=== PATIENT | male | born 1945 | race Caucasian/White ===

== ENCOUNTER 2018-06-11 05:12 | Inpatient (IN) | payer MEDICARE ==
[2018-06-10 14:49] LABS: BASOPHILS # (AUTO) 0.1 X10'3 (0-0.2); EOSINOPHILS # (AUTO) 0.1 X10'3 (0-0.9); EOSINOPHILS % (AUTO) 0.9 % (0-6); LYMPHOCYTES # (AUTO) 1.5 X10'3 (1.1-4.8); LYMPHOCYTES % (AUTO) 22.9 % (21-51); MEAN CORPUSCULAR HEMOGLOBIN 32.6 PG (27.0-31.0); MEAN CORPUSCULAR HGB CONC 35.1 % (33.0-36.5); MEAN CORPUSCULAR VOLUME 92.9 FL (78-98); MEAN PLATELET VOLUME 7.2 FL (7.4-10.4); MONOCYTES # (AUTO) 0.4 X10'3 (0-0.9); MONOCYTES % (AUTO) 6.4 % (2-12); NEUTROPHILS # (AUTO) 4.5 X10'3 (1.8-7.7); NEUTROPHILS % (AUTO) 68.8 % (42-75); PRE OP HEMATOCRIT 45.3 % (42.0-52.0); PRE OP HEMOGLOBIN 15.9 g/dL (14.0-17.9); PRE OP PLATELET COUNT 216 X10'3 (140-440); RED BLOOD COUNT 4.88 X10'6 (4.70-6.10); RED CELL DISTRIBUTION WIDTH 13.2 % (11.5-14.5)
[2018-06-10 15:01] LABS: PRE OP PROTIME 10.7 SECONDS (9.0-12.0)
[2018-06-10 15:06] LABS: ALBUMIN 3.8 G/DL (3.4-5.0); ALBUMIN/GLOBULIN RATIO 1.2 (1.1-1.5); ALKALINE PHOSPHATASE 70 IU/L (46-116); BLOOD UREA NITROGEN 21 MG/DL (7-18); BUN/CREATININE RATIO 16.9 (5.4-32.0); CALCIUM 8.9 MG/DL (8.5-10.1); CHLORIDE 105 MMOL/L (99-107); CREATININE 1.24 MG/DL (0.60-1.10); PRE OP ALT 31 U/L (30-65); PRE OP ANION GAP 6 (8-16); PRE OP AST 13 U/L (10-37); PRE OP GLUCOSE 94 MG/DL (70-104); PRE OP POTASSIUM 3.6 MMOL/L (3.4-5.1); PRE OP SODIUM 141 MMOL/L (135-145); TOTAL CARBON DIOXIDE 30.1 MMOL/L (24-32); TOTAL PROTEIN 6.9 G/DL (6.4-8.2); eGFR 57 ML/MIN
[2018-06-10 15:09] LABS: CLARITY,URINE CLEAR (Clear); COLOR,URINE YELLOW (Yellow); GLUCOSE, URINE NEGATIVE (Neg); KETONES,URINE NEGATIVE (Neg); LEUKOCYTE ESTERASE ,URINE NEGATIVE (Neg); NITRITES, URINE NEGATIVE (Neg); OCCULT BLOOD,URINE NEGATIVE (Neg); PH,URINE 6.5 (4.8-8.0); PROTEIN,URINE NEGATIVE (Neg)
[2018-06-10 15:18] LABS: UA COLLECTION TYPE CLN CATCH MIDSTREAM
[2018-06-10 15:39] LABS: HEMOGLOBIN A1C 5.5 % (4.5-6.2)
[~2018-06-11] VITALS: Ht 185.4 cm; Wt 118.7 kg
[2018-06-11] VITALS (19 sets, daily range): BP systolic 98–155; BP diastolic 48–98
[2018-06-11] MEDS: insulin regular, human 100 UNIT in normal saline 100ml IV soln 99 ML IV SCH ×2 (05:00)
[~2018-06-11 05:12] MED LIST: AMLO2.5T2 PO; ASPI-529 PO; CHOL10002 PO; CIDE600C PO; FISH12002 PO; FLAX100025 PO; FLUT16SP2 BOTHNARES; GEMF600T4 PO; HYDR12.5 PO; ISOS30TA6 PO; LORazepam 2 mg/ml vial IV ONE; METO-384 PO; PANT-47 PO; PRAV10TA39 PO; cefazolin/dext.iso 2gm/50ml 50 ML IV ONE; dextrose 50%-water 50ml dispensing syringe IV PRN; insulin Lispro (HumaLOG) vial - multi-dose SQ PRN; metoprolol tartrate 12.5mg (1/2 tablet) PO ONE; mupirocin 2% nasal ointment 1gm UD NS ONE; ringers solution, lacted 1,000 ML IV SCH
[2018-06-11] MEDS ORDERED: DOCUMENT DATE & TIME OF BETA-BLOCKER PO ONE (05:30)
[2018-06-11] MEDS ORDERED: famotidine 20mg tablet PO ONE (05:30)
[2018-06-11] MEDS ORDERED: LIDOcaine 1% (10mg/ml) 2ml vial ONE (05:46)
[2018-06-11] MEDS ORDERED: SUFENTANIL CITRATE 50 MCG/ML 2ml ampule IV ONE (07:03)
[2018-06-11] MEDS ORDERED: MIDAZolam 1mg/ml 10ml vial ONE (07:03)
[2018-06-11] MEDS ORDERED: aminocaproic acid 250 MG/1 ML inj. ONE (07:05)
[2018-06-11] MEDS ORDERED: potassium Cl 2 mEq/ml inj IV ONE (07:05)
[2018-06-11] MEDS ORDERED: papaverine 30 mg/ml 2ml inj. IA ONE (07:05)
[2018-06-11] MEDS ORDERED: heparin 10,000 units/1 ML INJ IR ONE (07:05)
[2018-06-11] MEDS ORDERED: LIDOcaine 2% (20 mg/ml) 5ml cardiac syringe ONE (07:05)
[2018-06-11] MEDS ORDERED: calcium chloride 100 MG/1 ML inj IV ONE (07:05)
[2018-06-11] MEDS ORDERED: phenylephrine 10mg/ml inj. ONE ×2 (07:05→08:25)
[2018-06-11] MEDS ORDERED: heparin 10,000 units/1 ML INJ ONE (07:05)
[2018-06-11] MEDS ORDERED: magnesium sulf 1 GM/2 ML ONE (07:05)
[2018-06-11] MEDS ORDERED: DOPamine/D5W 400mg/250ml bag IV ONE (07:05)
[2018-06-11] MEDS ORDERED: methylPREDNISolone sod. succ. 500mg inj ONE (07:05)
[2018-06-11] MEDS ORDERED: isoflurane 100ml inhalation liquid IH ONE (07:05)
[2018-06-11] MEDS ORDERED: sodium bicarbonate (8.4%) 1 mEq/ml syringe ONE (07:05)
[2018-06-11] MEDS ORDERED: nitroGLYCERIN in D5W 50mg/250ml (Tridil) infusion IV ONE (07:05)
[2018-06-11] MEDS ORDERED: protamine sulf. 10mg/ml inj. IV ONE (07:05)
[2018-06-11] MEDS ORDERED: albumin (human) 25% 100 ML IV solution IV ONE (07:05)
[2018-06-11] MEDS ORDERED: heparin 1,000 units/ml 10ml inj ONE (07:05)
[2018-06-11] MEDS ORDERED: niCARDipine in NS 40mg/200ml (0.2mg/ml) IVPB IV ONE (07:05)
[2018-06-11 07:50] LABS: ABG BASE EXCESS 1.2 mmol/L (-2.0-3.0); ABG HCO3 26.6 mmol/L (22.0-26.0); ABG OXYGEN SATURATION 98.6 % (95-98); ABG PCO2 44.9 mmHg (35.0-45.0); ABG PO2 429.6 mmHg (60.0-100.0); CL (ABG) 106 mmol/L (99-107); FCOHb 0.5 % (0.5-1.5); FMetHb 0.3 % (0.3-1.12); FO2Hb 97.8 % (94-100); GLUCOSE (ABG) 107 mg/dl (70-105); IONIZED CA (ABG) 1.14 mmol/L (1.03-1.32); K (ABG) 3.8 mmol/L (3.3-5.1); NA (ABG) 141 mmol/L (135-145); TOTAL HEMOGLOBIN 13.8 G/dl (14.0-18.0)
[2018-06-11] MEDS ORDERED: rocuronium 10mg/ml inj IV ONE (08:25)
[2018-06-11] MEDS ORDERED: epiNEPHrine 1 mg/ml inj ONE (08:25)
[2018-06-11] MEDS ORDERED: etomidate 2mg/ml inj. ONE (08:25)
[2018-06-11] MEDS ORDERED: LIDOcaine 2% (20mg/ml) 5ml vial ONE (08:25)
[2018-06-11] MEDS ORDERED: propofol inj 20 ML IV ONE (08:26)
[2018-06-11 09:26] LABS: ABG BASE EXCESS -0.1 mmol/L (-2.0-3.0); ABG HCO3 22.9 mmol/L (22.0-26.0); ABG OXYGEN SATURATION 98.5 % (95-98); ABG PCO2 32.1 mmHg (35.0-45.0); ABG PH 7.472 (7.350-7.450); ABG PO2 514.3 mmHg (60.0-100.0); CL (ABG) 102 mmol/L (99-107); FCOHb 0.1 % (0.5-1.5); FMetHb 0.1 % (0.3-1.12); FO2Hb 98.3 % (94-100); GLUCOSE (ABG) 112 mg/dl (70-105); IONIZED CA (ABG) 1.03 mmol/L (1.03-1.32); NA (ABG) 135 mmol/L (135-145); TOTAL HEMOGLOBIN 11.4 G/dl (14.0-18.0)
[2018-06-11] MEDS ORDERED: ipratropium/albuterol 3ml nebule IH PRN (09:30)
[2018-06-11] MEDS ORDERED: succinylcholine 20mg/ml inj IV ONE (09:31)
[2018-06-11 09:51] LABS: ABG BASE EXCESS VENOUS 1.6 mmol/L; ABG HCO3 VENOUS 26.5 mmol/L; ABG PCO2 VENOUS 42.8 mmHg; ABG PO2 VENOUS 55.1 mmHg; CL (ABG) 104 mmol/L (99-107); FCOHb VENOUS 0.9 %; FHHb VENOUS 10.8 %; FMetHb VENOUS 0.1 %; FO2Hb VENOUS 88.2 %; GLUCOSE (ABG) 121 mg/dl (70-105); IONIZED CA (ABG) 1.01 mmol/L (1.03-1.32); K (ABG) 4.1 mmol/L (3.3-5.1); NA (ABG) 137 mmol/L (135-145); TOTAL HEMOGLOBIN 11.2 G/dl (14.0-18.0)
[2018-06-11 10:35] LABS: ABG BASE EXCESS 2.4 mmol/L (-2.0-3.0); ABG HCO3 26.8 mmol/L (22.0-26.0); ABG OXYGEN SATURATION 98.2 % (95-98); ABG PCO2 40.4 mmHg (35.0-45.0); ABG PH 7.439 (7.350-7.450); CL (ABG) 106 mmol/L (99-107); FCOHb 0.3 % (0.5-1.5); FMetHb 0.3 % (0.3-1.12); FO2Hb 97.6 % (94-100); GLUCOSE (ABG) 133 mg/dl (70-105); IONIZED CA (ABG) 1.04 mmol/L (1.03-1.32); K (ABG) 4.6 mmol/L (3.3-5.1); NA (ABG) 136 mmol/L (135-145); TOTAL HEMOGLOBIN 10.9 G/dl (14.0-18.0)
[2018-06-11 11:06] LABS: ABG BASE EXCESS 3.7 mmol/L (-2.0-3.0); ABG HCO3 28.4 mmol/L (22.0-26.0); ABG OXYGEN SATURATION 98.1 % (95-98); ABG PCO2 43.4 mmHg (35.0-45.0); ABG PH 7.433 (7.350-7.450); ABG PO2 321.5 mmHg (60.0-100.0); CL (ABG) 103 mmol/L (99-107); FCOHb 0.3 % (0.5-1.5); FMetHb 0.1 % (0.3-1.12); FO2Hb 97.7 % (94-100); GLUCOSE (ABG) 130 mg/dl (70-105); IONIZED CA (ABG) 1.35 mmol/L (1.03-1.32); K (ABG) 4.5 mmol/L (3.3-5.1); NA (ABG) 133 mmol/L (135-145)
[2018-06-11] MEDS ORDERED: ceFAZolin 1000mg inj ONE (11:23)
[2018-06-11 11:46] LABS: ABG BASE EXCESS VENOUS -0.7 mmol/L; ABG HCO3 VENOUS 25.7 mmol/L; ABG PCO2 VENOUS 51.1 mmHg; ABG PO2 VENOUS 38.8 mmHg; CL (ABG) 105 mmol/L (99-107); FCOHb VENOUS 0.9 %; FHHb VENOUS 29.7 %; FMetHb VENOUS 0.6 %; FO2Hb VENOUS 68.8 %; GLUCOSE (ABG) 141 mg/dl (70-105); IONIZED CA (ABG) 1.19 mmol/L (1.03-1.32); K (ABG) 4.1 mmol/L (3.3-5.1); NA (ABG) 139 mmol/L (135-145); TOTAL HEMOGLOBIN 10.4 G/dl (14.0-18.0)
[2018-06-11] MEDS ORDERED: nitroGLYCERIN-Tridil 50MG/D5W 250 ML IV PRN (12:11)
[2018-06-11] MEDS ORDERED: DOPamine 400mg/D5W 250ml 250 ML IV PRN (12:11)
[2018-06-11] MEDS ORDERED: niCARDipine/sod cl 20mg/200ml 200 ML IV PRN (12:11)
[2018-06-11] MEDS ORDERED: insulin regular, human inj. 100 UNITS in normal saline 100ml IV soln 100 ML IV SCH ×2 (12:15)
[2018-06-11] MEDS ORDERED: sodium phosphate inj. 30 MMOL in dextrose 5%-water 250 ML IV PRN (12:15)
[2018-06-11] MEDS ORDERED: potassium Cl 20mEq/100mL bag 100 ML IV PRN (12:15)
[2018-06-11] MEDS ORDERED: metoclopramide 5 mg/ml inj IV PRN (12:15)
[2018-06-11] MEDS ORDERED: Neutra Phos packet PO PRN (12:15)
[2018-06-11] MEDS ORDERED: dextrose 50%-water 50ml dispensing syringe IV PRN (12:15)
[2018-06-11] MEDS ORDERED: acetaminophen 325mg tablet PO PRN (12:15)
[2018-06-11] MEDS ORDERED: normal saline 250ml IV soln 250 ML IV PRN (12:15)
[2018-06-11] MEDS ORDERED: ondansetron/PF 4mg/2ml inj IV PRN (12:15)
[2018-06-11] MEDS ORDERED: sodium phosphate inj. 15 MMOL in dextrose 5%-water 150 ML IV PRN (12:15)
[2018-06-11] MEDS ORDERED: magnesium 4gm in 100ml NS 100 ML IV PRN (12:15)
[2018-06-11] MEDS ORDERED: magnesium hydroxide 30ml (MOM) UD suspension PO PRN (12:15)
[2018-06-11] MEDS ORDERED: morphine 4 MG/ML inj SYRINge IV PRN (12:15)
[2018-06-11] MEDS ORDERED: NORepinephrine 1 mg/ml inj IV ONE (12:28)
[2018-06-11 12:50] LABS: ABG BASE EXCESS -3.2 mmol/L (-2.0-3.0); ABG HCO3 22.4 mmol/L (22.0-26.0); ABG OXYGEN SATURATION 97.5 % (95-98); ABG PH (T) 7.345 (7.350-7.450); ABG PO2 (T) 116.2 mmHg (83-108); FCOHb 0.6 % (0.5-1.5); FLOW 45 L/min; FMetHb 0.1 % (0.3-1.12); FO2Hb 96.8 % (94-100); MINUTE VOLUME 8 L/min; PEEP 5 cm H2O; RESPIRATORY RATE 12 b/min; RESPIRATORY RATE (OBSERVED) 12 b/min; TIDAL VOLUME 650 mL; TOTAL HEMOGLOBIN 15.4 G/dl (14.0-18.0)
[2018-06-11 12:55] LABS: BASOPHILS % (AUTO) 0.2 % (0-1); EOSINOPHILS % (AUTO) 0.2 % (0-6); HEMATOCRIT 43.3 % (42.0-52.0); HEMOGLOBIN 15.2 g/dl (14.0-17.9); LYMPHOCYTES # (AUTO) 1.5 X10'3 (1.1-4.8); LYMPHOCYTES % (AUTO) 9.7 % (21-51); MEAN CORPUSCULAR HEMOGLOBIN 32.7 PG (27.0-31.0); MEAN CORPUSCULAR HGB CONC 35.1 % (33.0-36.5); MEAN CORPUSCULAR VOLUME 93.1 FL (78-98); MEAN PLATELET VOLUME 7.3 FL (7.4-10.4); MONOCYTES # (AUTO) 0.7 X10'3 (0-0.9); MONOCYTES % (AUTO) 4.3 % (2-12); NEUTROPHILS # (AUTO) 13.1 X10'3 (1.8-7.7); NEUTROPHILS % (AUTO) 85.6 % (42-75); PLATELET COUNT 169 X10'3 (140-440); RED BLOOD COUNT 4.66 X10'6 (4.70-6.10); RED CELL DISTRIBUTION WIDTH 12.4 % (11.5-14.5); WHITE BLOOD COUNT 15.3 X10'3 (4.5-11.0)
[2018-06-11] MEDS: insulin Lispro (HumaLOG) vial - multi-dose SQ SCH ×2 (13:00→16:46)
[2018-06-11] MEDS: morphine 4 MG/ML inj SYRINge IV PRN ×2 (13:03→13:04)
[2018-06-11 13:05] LABS: INR 1.2 INR; PARTIAL THROMBOPLASTIN TIME 30 SECONDS (22-32)
[2018-06-11] MEDS: sodium chloride 0.45% 1,000 ML IV SCH (13:09)
[2018-06-11 13:10] LABS: ALANINE AMINOTRANSFERASE 21 U/L (12-78); ALBUMIN 3.4 G/DL (3.4-5.0); ALBUMIN/GLOBULIN RATIO 1.3 (1.1-1.5); ALKALINE PHOSPHATASE 49 IU/L (46-116); ANION GAP 9 (8-16); BILIRUBIN,TOTAL 1.1 MG/DL (0.1-1.0); BLOOD UREA NITROGEN 19 MG/DL (7-18); CALCIUM 8.1 MG/DL (8.5-10.1); CHLORIDE 107 MMOL/L (99-107); CREATININE 1.19 MG/DL (0.60-1.10); GLUCOSE 179 MG/DL (70-104); MAGNESIUM 2.4 MG/DL (1.5-2.4); SODIUM 142 MMOL/L (135-145); TOTAL CARBON DIOXIDE 26.5 MMOL/L (24-32); eGFR 60 ML/MIN
[2018-06-11 13:13] LABS: ASPARTATE AMINO TRANSFERASE 42 U/L (10-37); PHOSPHORUS 1.9 MG/DL (2.3-4.5); POTASSIUM 4.1 MMOL/L (3.5-5.1)
[2018-06-11] MEDS: magnesium 1gm/100ml D5W IVPB 100 ML IV PRN ×2 (13:55→17:39)
[2018-06-11] MEDS: potassium Cl 20mEq/100mL bag 100 ML IV PRN ×3 (13:55→19:50)
[2018-06-11] MEDS: albumin (Human) 5% 250ml 250 ML IV PRN ×2 (15:20→16:36)
[2018-06-11] MEDS: ceFAZolin 1GM/D5W- ADD-VANTAGE 50 ML IV SCH (16:37)
[2018-06-11] MEDS ORDERED: NORepinephrine 8mg/ 250ml NS 250 ML IV SCH (17:25)
[2018-06-11 18:29] LABS: BASOPHILS % (AUTO) 0 % (0-1); EOSINOPHILS % (AUTO) 0 % (0-6); HEMATOCRIT 37.1 % (42.0-52.0); HEMOGLOBIN 13.1 g/dl (14.0-17.9); LYMPHOCYTES # (AUTO) 0.4 X10'3 (1.1-4.8); LYMPHOCYTES % (AUTO) 4.6 % (21-51); MEAN CORPUSCULAR HGB CONC 35.2 % (33.0-36.5); MEAN CORPUSCULAR VOLUME 93.7 FL (78-98); MEAN PLATELET VOLUME 7.6 FL (7.4-10.4); MONOCYTES # (AUTO) 0.3 X10'3 (0-0.9); MONOCYTES % (AUTO) 3.8 % (2-12); NEUTROPHILS # (AUTO) 7.4 X10'3 (1.8-7.7); NEUTROPHILS % (AUTO) 91.6 % (42-75); PLATELET COUNT 114 X10'3 (140-440); RED BLOOD COUNT 3.96 X10'6 (4.70-6.10); RED CELL DISTRIBUTION WIDTH 12.5 % (11.5-14.5); WHITE BLOOD COUNT 8.1 X10'3 (4.5-11.0)
[2018-06-11 18:37] LABS: ALBUMIN 3.3 G/DL (3.4-5.0); ANION GAP 9 (8-16); BLOOD UREA NITROGEN 21 MG/DL (7-18); BUN/CREATININE RATIO 14.8 (5.4-32.0); CALCIUM 7.8 MG/DL (8.5-10.1); CHLORIDE 109 MMOL/L (99-107); CREATININE 1.42 MG/DL (0.60-1.10); GLUCOSE 155 MG/DL (70-104); POTASSIUM 3.6 MMOL/L (3.5-5.1); SODIUM 141 MMOL/L (135-145); TOTAL CARBON DIOXIDE 23.3 MMOL/L (24-32); eGFR 49 ML/MIN
[2018-06-11] MEDS: docusate sod 100mg capsule PO SCH (20:00)
[2018-06-11] MEDS: vancomycin/NS 1 GM ADD-VANTAGE 250 ML IV SCH (20:46)
[2018-06-11] MEDS: mupirocin 2% nasal ointment 1gm UD NS SCH (20:46)
[2018-06-11 23:11] LABS: ABG BASE EXCESS -1.3 mmol/L (-2.0-3.0); ABG HCO3 22.2 mmol/L (22.0-26.0); ABG OXYGEN SATURATION 96.7 % (95-98); ABG PCO2 (T) 34.4 mmHg (35.0-48.0); ABG PO2 (T) 96.4 mmHg (83-108); FCOHb 0.4 % (0.5-1.5); FMetHb 0.3 % (0.3-1.12); MINUTE VOLUME 8 L/min; PATIENT TEMPERATURE 37.6; PEEP 5 cm H2O; RESPIRATORY RATE (OBSERVED) 11 b/min; TOTAL HEMOGLOBIN 13.2 G/dl (14.0-18.0)
[2018-06-12] VITALS (24 sets, daily range): BP systolic 104–137; BP diastolic 48–76
[2018-06-12] MEDS: ceFAZolin 1GM/D5W- ADD-VANTAGE 50 ML IV SCH ×3 (00:18→16:37)
[2018-06-12 02:39] LABS: INR 1.1 INR; PARTIAL THROMBOPLASTIN TIME 29 SECONDS (22-32); PROTHROMBIN TIME 11.4 SECONDS (9.0-12.0)
[2018-06-12 02:43] LABS: ALANINE AMINOTRANSFERASE 22 U/L (12-78); ALBUMIN 3.2 G/DL (3.4-5.0); ALBUMIN/GLOBULIN RATIO 1.6 (1.1-1.5); ALKALINE PHOSPHATASE 37 IU/L (46-116); ANION GAP 8 (8-16); ASPARTATE AMINO TRANSFERASE 30 U/L (10-37); BILIRUBIN,TOTAL 0.7 MG/DL (0.1-1.0); BLOOD UREA NITROGEN 21 MG/DL (7-18); BUN/CREATININE RATIO 17.1 (5.4-32.0); CALCIUM 7.8 MG/DL (8.5-10.1); CHLORIDE 109 MMOL/L (99-107); CREATININE 1.23 MG/DL (0.60-1.10); GLUCOSE 130 MG/DL (70-104); MAGNESIUM 2.1 MG/DL (1.5-2.4); PHOSPHORUS 2.8 MG/DL (2.3-4.5); POTASSIUM 3.9 MMOL/L (3.5-5.1); SODIUM 142 MMOL/L (135-145); TOTAL CARBON DIOXIDE 24.8 MMOL/L (24-32); TOTAL PROTEIN 5.2 G/DL (6.4-8.2); eGFR 58 ML/MIN
[2018-06-12 02:53] LABS: BASOPHILS % (AUTO) 0 % (0-1); EOSINOPHILS % (AUTO) 0 % (0-6); HEMATOCRIT 36.4 % (42.0-52.0); HEMOGLOBIN 12.6 g/dl (14.0-17.9); LYMPHOCYTES # (AUTO) 0.5 X10'3 (1.1-4.8); LYMPHOCYTES % (AUTO) 4.8 % (21-51); MEAN CORPUSCULAR HEMOGLOBIN 32.6 PG (27.0-31.0); MEAN CORPUSCULAR HGB CONC 34.6 % (33.0-36.5); MEAN CORPUSCULAR VOLUME 94.1 FL (78-98); MONOCYTES # (AUTO) 0.6 X10'3 (0-0.9); MONOCYTES % (AUTO) 5.2 % (2-12); NEUTROPHILS # (AUTO) 9.9 X10'3 (1.8-7.7); PLATELET COUNT 116 X10'3 (140-440); RED BLOOD COUNT 3.87 X10'6 (4.70-6.10); RED CELL DISTRIBUTION WIDTH 12.5 % (11.5-14.5)
[2018-06-12] MEDS: magnesium 1gm/100ml D5W IVPB 100 ML IV PRN ×2 (02:54→13:22)
[2018-06-12] MEDS: potassium Cl 20mEq/100mL bag 100 ML IV PRN ×2 (03:08→11:30)
[2018-06-12] MEDS: insulin regular, human 100 UNIT in normal saline 100ml IV soln 99 ML IV SCH ×2 (05:00)
[2018-06-12] MEDS: HYDROcodone/acetaminophen 10/325mg tab PO PRN ×3 (05:34→18:36)
[2018-06-12] MEDS ORDERED: aspirin 325mg tablet, delayed-release (Ecotrin) PO SCH (08:00)
[2018-06-12] MEDS: metoprolol tartrate 12.5mg (1/2 tablet) PO SCH ×2 (08:11→20:02)
[2018-06-12] MEDS: docusate sod 100mg capsule PO SCH ×2 (08:11→20:02)
[2018-06-12] MEDS: pantoprazole 40mg Tablet.DR PO SCH (08:11)
[2018-06-12] MEDS: atorvastatin 10mg tablet PO SCH (08:12)
[2018-06-12] MEDS: mupirocin 2% nasal ointment 1gm UD NS SCH ×2 (08:14→20:02)
[2018-06-12] MEDS: clopidogrel 75mg tablet PO SCH (08:14)
[2018-06-12] MEDS: vancomycin/NS 1 GM ADD-VANTAGE 250 ML IV SCH ×2 (08:26→20:02)
[2018-06-12] MEDS: aspirin 81mg tab.chew PO SCH (08:26)
[2018-06-12 08:52] LABS: MAGNESIUM 2.4 MG/DL (1.5-2.4); POTASSIUM 4.1 MMOL/L (3.5-5.1)
[2018-06-12] MEDS: insulin Lispro (HumaLOG) vial - multi-dose SQ SCH ×2 (08:55→13:00)
[2018-06-12] MEDS: ketorolac trometh. 30mg/ml inj. IV SCH ×2 (12:18→20:02)
[2018-06-12 17:43] LABS: MAGNESIUM 2.9 MG/DL (1.5-2.4); POTASSIUM 4.5 MMOL/L (3.5-5.1)
[2018-06-12 18:10] LABS: PHOSPHORUS 2.7 MG/DL (2.3-4.5)
[2018-06-13] VITALS (24 sets, daily range): BP systolic 108–167; BP diastolic 65–89
[2018-06-13] MEDS: ceFAZolin 1GM/D5W- ADD-VANTAGE 50 ML IV SCH (00:20)
[2018-06-13] MEDS: ketorolac trometh. 30mg/ml inj. IV SCH ×2 (02:12→07:58)
[2018-06-13 02:54] LABS: BASOPHILS % (AUTO) 0.1 % (0-1); EOSINOPHILS % (AUTO) 0.1 % (0-6); HEMATOCRIT 36.4 % (42.0-52.0); HEMOGLOBIN 12.3 g/dl (14.0-17.9); LYMPHOCYTES # (AUTO) 0.7 X10'3 (1.1-4.8); LYMPHOCYTES % (AUTO) 6.6 % (21-51); MEAN CORPUSCULAR HEMOGLOBIN 32.4 PG (27.0-31.0); MEAN CORPUSCULAR HGB CONC 33.8 % (33.0-36.5); MEAN CORPUSCULAR VOLUME 95.9 FL (78-98); MEAN PLATELET VOLUME 8.1 FL (7.4-10.4); MONOCYTES # (AUTO) 0.6 X10'3 (0-0.9); MONOCYTES % (AUTO) 5.7 % (2-12); NEUTROPHILS # (AUTO) 9.7 X10'3 (1.8-7.7); NEUTROPHILS % (AUTO) 87.5 % (42-75); PLATELET COUNT 115 X10'3 (140-440); RED CELL DISTRIBUTION WIDTH 12.6 % (11.5-14.5)
[2018-06-13 02:56] LABS: ANION GAP 4 (8-16); BLOOD UREA NITROGEN 29 MG/DL (7-18); BUN/CREATININE RATIO 21.6 (5.4-32.0); CALCIUM 7.8 MG/DL (8.5-10.1); CHLORIDE 105 MMOL/L (99-107); CREATININE 1.34 MG/DL (0.60-1.10); GLUCOSE 143 MG/DL (70-104); MAGNESIUM 2.6 MG/DL (1.5-2.4); PHOSPHORUS 2.5 MG/DL (2.3-4.5); POTASSIUM 4.4 MMOL/L (3.5-5.1); SODIUM 136 MMOL/L (135-145); TOTAL CARBON DIOXIDE 26.9 MMOL/L (24-32); eGFR 52 ML/MIN
[2018-06-13] MEDS: potassium Cl 20mEq/100mL bag 100 ML IV PRN (03:59)
[2018-06-13] MEDS: pantoprazole 40mg Tablet.DR PO SCH (07:58)
[2018-06-13] MEDS: aspirin 81mg tab.chew PO SCH (07:58)
[2018-06-13] MEDS: metoprolol tartrate 12.5mg (1/2 tablet) PO SCH ×2 (07:58→19:52)
[2018-06-13] MEDS: clopidogrel 75mg tablet PO SCH (07:59)
[2018-06-13] MEDS: atorvastatin 10mg tablet PO SCH (07:59)
[2018-06-13] MEDS: docusate sod 100mg capsule PO SCH ×2 (08:00→19:52)
[2018-06-13] MEDS: mupirocin 2% nasal ointment 1gm UD NS SCH (08:00)
[2018-06-13] MEDS: sodium chloride 0.45% 1,000 ML IV SCH (12:11)
[2018-06-13] MEDS: HYDROcodone/acetaminophen 10/325mg tab PO PRN ×2 (16:34→22:01)
[2018-06-13] MEDS: gemfibrozil 600mg tablet PO SCH (19:52)
[2018-06-14] VITALS (17 sets, daily range): BP systolic 109–170; BP diastolic 58–90
[2018-06-14] MEDS: HYDROcodone/acetaminophen 10/325mg tab PO PRN ×3 (04:19→22:47)
[2018-06-14 05:21] LABS: ABG BASE EXCESS 1.7 mmol/L (-2.0-3.0); ABG HCO3 25.8 mmol/L (22.0-26.0); ABG OXYGEN SATURATION 95.5 % (95-98); ABG PCO2 (T) 38.8 mmHg (35.0-48.0); ABG PO2 (T) 76.4 mmHg (83-108); ALLEN'S TEST Positive; FCOHb 1.2 % (0.5-1.5); FMetHb 0.3 % (0.3-1.12); FO2Hb 94.1 % (94-100); TOTAL HEMOGLOBIN 15.3 G/dl (14.0-18.0)
[2018-06-14 05:26] LABS: ACT @ 1.70 U 333 SEC (193-297); ACT @ 2.84 U 462 SEC (260-420); BASELINE ACT 153 SEC (101-148)
[2018-06-14 05:26] LABS: ACTIVATED CLOTTING TIME 129 SEC (101-148)
[2018-06-14 05:43] LABS: BASOPHILS % (AUTO) 0.2 % (0-1); EOSINOPHILS % (AUTO) 0.1 % (0-6); HEMATOCRIT 39.8 % (42.0-52.0); HEMOGLOBIN 13.6 g/dl (14.0-17.9); LYMPHOCYTES # (AUTO) 0.8 X10'3 (1.1-4.8); LYMPHOCYTES % (AUTO) 8.5 % (21-51); MEAN CORPUSCULAR HEMOGLOBIN 32.3 PG (27.0-31.0); MEAN CORPUSCULAR HGB CONC 34.3 % (33.0-36.5); MEAN CORPUSCULAR VOLUME 94.2 FL (78-98); MEAN PLATELET VOLUME 8.1 FL (7.4-10.4); MONOCYTES # (AUTO) 0.8 X10'3 (0-0.9); MONOCYTES % (AUTO) 7.9 % (2-12); NEUTROPHILS # (AUTO) 8.3 X10'3 (1.8-7.7); NEUTROPHILS % (AUTO) 83.3 % (42-75); PLATELET COUNT 135 X10'3 (140-440); RED BLOOD COUNT 4.22 X10'6 (4.70-6.10); RED CELL DISTRIBUTION WIDTH 12.9 % (11.5-14.5); WHITE BLOOD COUNT 9.9 X10'3 (4.5-11.0)
[2018-06-14 06:21] LABS: ALBUMIN 3.1 G/DL (3.4-5.0); ANION GAP 8 (8-16); BLOOD UREA NITROGEN 23 MG/DL (7-18); CALCIUM 8.2 MG/DL (8.5-10.1); CHLORIDE 104 MMOL/L (99-107); GLUCOSE 124 MG/DL (70-104); MAGNESIUM 2.1 MG/DL (1.5-2.4); PHOSPHORUS 2.1 MG/DL (2.3-4.5); POTASSIUM 4.1 MMOL/L (3.5-5.1); SODIUM 138 MMOL/L (135-145); TOTAL CARBON DIOXIDE 25.8 MMOL/L (24-32); eGFR 73 ML/MIN
[2018-06-14] MEDS ORDERED: magnesium 1gm/100ml D5W IVPB 100 ML IV PRN (07:05)
[2018-06-14] MEDS ORDERED: potassium Cl 40MEQ/NS 500ml 500 ML IV PRN ×2 (07:05)
[2018-06-14] MEDS ORDERED: magnesium Cl slow-release 64mg tablet PO PRN (07:05)
[2018-06-14] MEDS ORDERED: magnesium 4gm in 100ml NS 100 ML IV PRN (07:05)
[2018-06-14] MEDS ORDERED: potassium Cl 20 mEq SR tablet PO PRN ×2 (07:05)
[2018-06-14] MEDS: fluticasone nasal spray 16GM bottle NS SCH (08:00)
[2018-06-14] MEDS: docusate sod 100mg capsule PO SCH ×2 (08:00→19:48)
[2018-06-14] MEDS: metoprolol tartrate 25mg tablet PO SCH ×2 (08:46→19:44)
[2018-06-14] MEDS: gemfibrozil 600mg tablet PO SCH ×2 (08:46→19:44)
[2018-06-14] MEDS: pantoprazole 40mg Tablet.DR PO SCH (08:46)
[2018-06-14] MEDS: potassium Cl 20 mEq SR tablet PO SCH ×2 (08:47→19:29)
[2018-06-14] MEDS: aspirin 81mg tab.chew PO SCH (08:47)
[2018-06-14] MEDS: magnesium Cl slow-release 64mg tablet PO SCH ×2 (08:47→19:30)
[2018-06-14] MEDS: clopidogrel 75mg tablet PO SCH (08:47)
[2018-06-14] MEDS: HYDROchlorothiazide 12.5mg capsule PO SCH (08:47)
[2018-06-14] MEDS: K and/or MAG REPLACEMENT MC SCH (08:49)
[2018-06-14] MEDS: tamsulosin 0.4mg capsule PO SCH ×2 (12:24→20:09)
[2018-06-14] MEDS ORDERED: tamsulosin 0.4mg capsule PO SCH (21:00)
[2018-06-15 03:00] VITALS: BP 103/53
[2018-06-15 06:02] LABS: BASOPHILS % (AUTO) 0.2 % (0-1); EOSINOPHILS # (AUTO) 0.1 X10'3 (0-0.9); EOSINOPHILS % (AUTO) 1.3 % (0-6); HEMATOCRIT 35.7 % (42.0-52.0); HEMOGLOBIN 12.2 g/dl (14.0-17.9); LYMPHOCYTES % (AUTO) 14.9 % (21-51); MEAN CORPUSCULAR HEMOGLOBIN 32.3 PG (27.0-31.0); MEAN CORPUSCULAR VOLUME 94.9 FL (78-98); MEAN PLATELET VOLUME 7.7 FL (7.4-10.4); MONOCYTES # (AUTO) 0.6 X10'3 (0-0.9); MONOCYTES % (AUTO) 8.8 % (2-12); NEUTROPHILS # (AUTO) 4.8 X10'3 (1.8-7.7); NEUTROPHILS % (AUTO) 74.8 % (42-75); PLATELET COUNT 141 X10'3 (140-440); RED BLOOD COUNT 3.77 X10'6 (4.70-6.10); RED CELL DISTRIBUTION WIDTH 13.7 % (11.5-14.5); WHITE BLOOD COUNT 6.4 X10'3 (4.5-11.0)
[2018-06-15 06:13] LABS: ALBUMIN 2.7 G/DL (3.4-5.0); ANION GAP 5 (8-16); BLOOD UREA NITROGEN 21 MG/DL (7-18); CALCIUM 8.4 MG/DL (8.5-10.1); CHLORIDE 105 MMOL/L (99-107); CREATININE 1.05 MG/DL (0.60-1.10); GLUCOSE 99 MG/DL (70-104); MAGNESIUM 1.9 MG/DL (1.5-2.4); SODIUM 139 MMOL/L (135-145); TOTAL CARBON DIOXIDE 29.1 MMOL/L (24-32); eGFR 69 ML/MIN
[2018-06-15 07:00] VITALS: BP 125/68
[2018-06-15] MEDS: aspirin 81mg tab.chew PO SCH (07:55)
[2018-06-15] MEDS: clopidogrel 75mg tablet PO SCH (07:55)
[2018-06-15] MEDS: HYDROchlorothiazide 12.5mg capsule PO SCH (07:56)
[2018-06-15] MEDS: metoprolol tartrate 25mg tablet PO SCH ×2 (07:56→19:54)
[2018-06-15] MEDS: gemfibrozil 600mg tablet PO SCH ×2 (07:56→19:53)
[2018-06-15] MEDS: pantoprazole 40mg Tablet.DR PO SCH (07:59)
[2018-06-15] MEDS: potassium Cl 20 mEq SR tablet PO SCH ×2 (08:00→19:53)
[2018-06-15] MEDS: K and/or MAG REPLACEMENT MC SCH (08:00)
[2018-06-15] MEDS: magnesium Cl slow-release 64mg tablet PO SCH ×2 (08:00→19:53)
[2018-06-15] MEDS: fluticasone nasal spray 16GM bottle NS SCH (08:00)
[2018-06-15] MEDS: docusate sod 100mg capsule PO SCH ×2 (08:00→19:54)
[2018-06-15] MEDS: HYDROcodone/acetaminophen 10/325mg tab PO PRN ×2 (10:13→19:59)
[2018-06-15 11:00] VITALS: BP 116/65
[2018-06-15 15:00] VITALS: BP 128/74
[2018-06-15 19:00] VITALS: BP 145/67
[2018-06-15] MEDS: tamsulosin 0.4mg capsule PO SCH (20:12)
[2018-06-15 23:00] VITALS: BP 143/87
[2018-06-16 03:00] VITALS: BP 159/78
[2018-06-16] MEDS: HYDROcodone/acetaminophen 10/325mg tab PO PRN (05:33)
[2018-06-16 06:00] VITALS: BP 133/74
[2018-06-16 06:09] LABS: ALBUMIN 2.7 G/DL (3.4-5.0); ANION GAP 7 (8-16); BLOOD UREA NITROGEN 19 MG/DL (7-18); BUN/CREATININE RATIO 19.4 (5.4-32.0); CALCIUM 8.4 MG/DL (8.5-10.1); CHLORIDE 104 MMOL/L (99-107); CREATININE 0.98 MG/DL (0.60-1.10); GLUCOSE 92 MG/DL (70-104); MAGNESIUM 1.9 MG/DL (1.5-2.4); SODIUM 141 MMOL/L (135-145); TOTAL CARBON DIOXIDE 29.8 MMOL/L (24-32); eGFR 75 ML/MIN
[2018-06-16 06:12] LABS: BASOPHILS % (AUTO) 0.4 % (0-1); EOSINOPHILS # (AUTO) 0.1 X10'3 (0-0.9); EOSINOPHILS % (AUTO) 1.8 % (0-6); HEMATOCRIT 38.7 % (42.0-52.0); HEMOGLOBIN 13.4 g/dl (14.0-17.9); LYMPHOCYTES # (AUTO) 1.2 X10'3 (1.1-4.8); MEAN CORPUSCULAR HEMOGLOBIN 32.5 PG (27.0-31.0); MEAN CORPUSCULAR HGB CONC 34.5 % (33.0-36.5); MEAN PLATELET VOLUME 7.3 FL (7.4-10.4); MONOCYTES # (AUTO) 0.5 X10'3 (0-0.9); MONOCYTES % (AUTO) 8.2 % (2-12); NEUTROPHILS # (AUTO) 4.2 X10'3 (1.8-7.7); NEUTROPHILS % (AUTO) 69.6 % (42-75); PLATELET COUNT 166 X10'3 (140-440); RED BLOOD COUNT 4.12 X10'6 (4.70-6.10); RED CELL DISTRIBUTION WIDTH 13.5 % (11.5-14.5); WHITE BLOOD COUNT 6.1 X10'3 (4.5-11.0)
[2018-06-16] MEDS ORDERED: CLOP75TA35 PO (07:18)
[2018-06-16] MEDS ORDERED: TAMS0.4C32 PO (07:18)
[2018-06-16] MEDS ORDERED: COL100C PO (07:18)
[2018-06-16] MEDS ORDERED: HYDR-3972 PO (07:18)
[2018-06-16] MEDS: K and/or MAG REPLACEMENT MC SCH (08:00)
[2018-06-16] MEDS: fluticasone nasal spray 16GM bottle NS SCH (08:00)
[2018-06-16] MEDS: clopidogrel 75mg tablet PO SCH (08:10)
[2018-06-16] MEDS: potassium Cl 20 mEq SR tablet PO SCH (08:11)
[2018-06-16] MEDS: magnesium Cl slow-release 64mg tablet PO SCH (08:11)
[2018-06-16] MEDS: pantoprazole 40mg Tablet.DR PO SCH (08:11)
[2018-06-16] MEDS: metoprolol tartrate 25mg tablet PO SCH (08:12)
[2018-06-16] MEDS: aspirin 81mg tab.chew PO SCH (08:12)
[2018-06-16] MEDS: docusate sod 100mg capsule PO SCH (08:12)
[2018-06-16] MEDS: HYDROchlorothiazide 12.5mg capsule PO SCH (08:13)
[2018-06-16] MEDS: gemfibrozil 600mg tablet PO SCH (08:13)
== END 2018-06-16 11:19 | disposition home health service (06) | DRG 229 ==
LOC: PAS IN 05:12 → EDSTATUS 07:30 → CICU 2S 08:57 → PCU 3S 06-14 12:40
PROVIDERS: ADMIT Thoracic Surgery (Cardiothoracic Vascular Surgery); ATTEND Thoracic Surgery (Cardiothoracic Vascular Surgery)
PROC: 02100Z9 Bypass Coronary Artery, One Artery from Left Internal Mammary, Open Approach (ICD-10-PCS; 2018-06-11)
PROC: 021209W Bypass Coronary Artery, Three Arteries from Aorta with Autologous Venous Tissue, Open Approach (ICD-10-PCS; 2018-06-11)
PROC: 06BQ4ZZ Excision of Left Saphenous Vein, Percutaneous Endoscopic Approach (ICD-10-PCS; 2018-06-11)
PROC: B24BZZ4 Ultrasonography of Heart with Aorta, Transesophageal (ICD-10-PCS; 2018-06-11)
PROC: 5A1221Z Performance of Cardiac Output, Continuous (ICD-10-PCS; 2018-06-11)
PROC: 05HM33Z Insertion of Infusion Device into Right Internal Jugular Vein, Percutaneous Approach (ICD-10-PCS; 2018-06-11)
PROC: 02C00ZZ Extirpation of Matter from Coronary Artery, One Artery, Open Approach (ICD-10-PCS; principal; 2018-06-11 07:05)
PROC: 5A09357 Assistance with Respiratory Ventilation, Less than 24 Consecutive Hours, Continuous Positive Airway Pressure (ICD-10-PCS; 2018-06-12)
PROC: 5A09357 Assistance with Respiratory Ventilation, Less than 24 Consecutive Hours, Continuous Positive Airway Pressure (ICD-10-PCS; 2018-06-13)
PROC: 5A09357 Assistance with Respiratory Ventilation, Less than 24 Consecutive Hours, Continuous Positive Airway Pressure (ICD-10-PCS; 2018-06-14)
PROC: BW241ZZ Computerized Tomography (CT Scan) of Chest and Abdomen using Low Osmolar Contrast (ICD-10-PCS; 2018-06-15)
DX: I25.110 Atherosclerotic heart disease of native coronary artery with unstable angina pectoris (principal); K21.9 Gastro-esophageal reflux disease without esophagitis; E78.00 Pure hypercholesterolemia, unspecified; E11.51 Type 2 diabetes mellitus with diabetic peripheral angiopathy without gangrene; I10 Essential (primary) hypertension; M19.90 Unspecified osteoarthritis, unspecified site; R33.9 Retention of urine, unspecified; E66.9 Obesity, unspecified; R94.39 Abnormal result of other cardiovascular function study; I48.91 Unspecified atrial fibrillation; Z98.61 Coronary angioplasty status; I25.2 Old myocardial infarction; Z72.89 Other problems related to lifestyle; Z79.899 Other long term (current) drug therapy; Z79.82 Long term (current) use of aspirin; Z88.0 Allergy status to penicillin; Z88.8 Allergy status to other drugs, medicaments and biological substances; Z87.891 Personal history of nicotine dependence; Z82.49 Family history of ischemic heart disease and other diseases of the circulatory system; Z68.34 Body mass index [BMI] 34.0-34.9, adult
CPT/HCPCS: 0232T; 93312; 93325; 36415; 36600; 71045; 71046; 71250; 80048; 80053; 81003; 82330; 82435; 82803; 82947; 82948; 83036; 83735; 84100; 84132; 84295; 85018; 85025; 85347; 85384; 85610; 85730; 86885; 86900; 86901; 86920; 87070; 88300; 93005; 93880; 93970; 94002; 94667; 94760; 97110; 97116; 97162; 97530; A4353; A6213; A6255; A6257; A6258; A6402; A6446; A6449; A7000; A7048; C1751; J0171; J0330; J0690; J1265; J1644; J1815; J1885; J2001; J2060; J2150; J2250; J2270; J2370; J2440; J2704; J2720; J2930; J3370; J3475; J3480; J3490; J7030; J7060; J7120; P9045; P9047

== ENCOUNTER 2018-06-20 12:57 | Inpatient (IN) | payer MEDICARE ==
[~2018-06-20] VITALS: Ht 185.4 cm; Wt 114.7 kg
[~2018-06-20 12:57] MED LIST changes: +CLOP75TA35 PO; +COL100C PO; +HYDR-3972 PO; -ISOS30TA6 PO; -LORazepam 2 mg/ml vial IV ONE; +TAMS0.4C32 PO; -cefazolin/dext.iso 2gm/50ml 50 ML IV ONE; -dextrose 50%-water 50ml dispensing syringe IV PRN; -insulin Lispro (HumaLOG) vial - multi-dose SQ PRN; -metoprolol tartrate 12.5mg (1/2 tablet) PO ONE; -mupirocin 2% nasal ointment 1gm UD NS ONE; -ringers solution, lacted 1,000 ML IV SCH
[2018-06-20 13:25] LABS: BASOPHILS # (AUTO) 0.1 X10'3 (0-0.2); BASOPHILS % (AUTO) 0.9 % (0-1); EOSINOPHILS # (AUTO) 0.1 X10'3 (0-0.9); EOSINOPHILS % (AUTO) 1.6 % (0-6); HEMATOCRIT 43.3 % (42.0-52.0); LYMPHOCYTES # (AUTO) 1.2 X10'3 (1.1-4.8); LYMPHOCYTES % (AUTO) 19.1 % (21-51); MEAN CORPUSCULAR HEMOGLOBIN 32.7 PG (27.0-31.0); MEAN CORPUSCULAR HGB CONC 34.6 % (33.0-36.5); MEAN CORPUSCULAR VOLUME 94.4 FL (78-98); MEAN PLATELET VOLUME 6.9 FL (7.4-10.4); MONOCYTES # (AUTO) 0.5 X10'3 (0-0.9); MONOCYTES % (AUTO) 7.5 % (2-12); NEUTROPHILS # (AUTO) 4.5 X10'3 (1.8-7.7); NEUTROPHILS % (AUTO) 70.9 % (42-75); PLATELET COUNT 295 X10'3 (140-440); RED BLOOD COUNT 4.59 X10'6 (4.70-6.10); RED CELL DISTRIBUTION WIDTH 13.7 % (11.5-14.5); WHITE BLOOD COUNT 6.3 X10'3 (4.5-11.0)
[2018-06-20 13:37] LABS: PARTIAL THROMBOPLASTIN TIME 27 SECONDS (22-32); PROTHROMBIN TIME 10.6 SECONDS (9.0-12.0)
[2018-06-20 13:42] LABS: ALANINE AMINOTRANSFERASE 34 U/L (12-78); ALBUMIN 3.5 G/DL (3.4-5.0); ALKALINE PHOSPHATASE 77 IU/L (46-116); ANION GAP 10 (8-16); ASPARTATE AMINO TRANSFERASE 18 U/L (10-37); BLOOD UREA NITROGEN 20 MG/DL (7-18); BUN/CREATININE RATIO 16.1 (5.4-32.0); CHLORIDE 102 MMOL/L (99-107); CREATININE 1.24 MG/DL (0.60-1.10); GLUCOSE 123 MG/DL (70-104); POTASSIUM 3.4 MMOL/L (3.5-5.1); SODIUM 139 MMOL/L (135-145); TOTAL CARBON DIOXIDE 27.3 MMOL/L (24-32); TOTAL PROTEIN 7.1 G/DL (6.4-8.2); eGFR 57 ML/MIN
[2018-06-20 13:46] LABS: ETHANOL < 0.010 GM/DL (0.0-0.010); TROPONIN I 0.07 NG/ML (0.0-0.05)
[2018-06-20] MEDS ORDERED: magnesium Cl slow-release 64mg tablet PO PRN (14:25)
[2018-06-20] MEDS ORDERED: potassium Cl 40MEQ/NS 500ml 500 ML IV PRN ×2 (14:25)
[2018-06-20] MEDS ORDERED: magnesium 1gm/100ml D5W IVPB 100 ML IV PRN (14:25)
[2018-06-20] MEDS ORDERED: ondansetron/PF 4mg/2ml inj IV PRN (14:25)
[2018-06-20] MEDS ORDERED: potassium Cl 20 mEq SR tablet PO PRN ×2 (14:25)
[2018-06-20] MEDS ORDERED: magnesium 4gm in 100ml NS 100 ML IV PRN (14:25)
[2018-06-20 15:30] VITALS: BP 139/76
[2018-06-20] MEDS: K and/or MAG REPLACEMENT MC SCH (16:01)
[2018-06-20 19:00] VITALS: BP 138/71
[2018-06-20] MEDS: tamsulosin 0.4mg capsule PO SCH (20:18)
[2018-06-20] MEDS: aspirin 81mg tab.chew PO SCH (20:18)
[2018-06-20] MEDS: pantoprazole 40mg Tablet.DR PO SCH (20:19)
[2018-06-20] MEDS: pravastatin 40mg tablet PO SCH (20:19)
[2018-06-20] MEDS: gemfibrozil 600mg tablet PO SCH (20:19)
[2018-06-20 23:00] VITALS: BP 145/80
[2018-06-21 03:00] VITALS: BP 128/46
[2018-06-21 06:00] VITALS: BP 118/73
[2018-06-21 06:45] LABS: BASOPHILS % (AUTO) 0.3 % (0-1); EOSINOPHILS # (AUTO) 0.2 X10'3 (0-0.9); EOSINOPHILS % (AUTO) 2.3 % (0-6); HEMATOCRIT 37.8 % (42.0-52.0); HEMOGLOBIN 13.1 g/dl (14.0-17.9); LYMPHOCYTES # (AUTO) 1.2 X10'3 (1.1-4.8); LYMPHOCYTES % (AUTO) 17.5 % (21-51); MEAN CORPUSCULAR HEMOGLOBIN 32.5 PG (27.0-31.0); MEAN CORPUSCULAR HGB CONC 34.7 % (33.0-36.5); MEAN CORPUSCULAR VOLUME 93.5 FL (78-98); MEAN PLATELET VOLUME 7.1 FL (7.4-10.4); MONOCYTES # (AUTO) 0.5 X10'3 (0-0.9); MONOCYTES % (AUTO) 7.3 % (2-12); NEUTROPHILS # (AUTO) 5.1 X10'3 (1.8-7.7); NEUTROPHILS % (AUTO) 72.6 % (42-75); PLATELET COUNT 269 X10'3 (140-440); RED BLOOD COUNT 4.04 X10'6 (4.70-6.10); RED CELL DISTRIBUTION WIDTH 13.3 % (11.5-14.5)
[2018-06-21 07:07] LABS: ALBUMIN 2.8 G/DL (3.4-5.0); ANION GAP 10 (8-16); BLOOD UREA NITROGEN 15 MG/DL (7-18); BUN/CREATININE RATIO 13.4 (5.4-32.0); CALCIUM 8.5 MG/DL (8.5-10.1); CHLORIDE 104 MMOL/L (99-107); CHOL/HDL RATIO 3.9 (0.00-4.99); CHOLESTEROL 120 MG/DL (0-200); CREATININE 1.12 MG/DL (0.60-1.10); GLUCOSE 111 MG/DL (70-104); HDL CHOLESTEROL 31 MG/DL (35-60); LDL CHOLESTEROL 82 MG/DL (50-100); MAGNESIUM 1.7 MG/DL (1.5-2.4); POTASSIUM 3.5 MMOL/L (3.5-5.1); SODIUM 139 MMOL/L (135-145); TOTAL CARBON DIOXIDE 25.2 MMOL/L (24-32); TRIGLYCERIDES 56 MG/DL (20-135); eGFR 64 ML/MIN
[2018-06-21] MEDS: gemfibrozil 600mg tablet PO SCH ×2 (08:00→21:37)
[2018-06-21] MEDS: fluticasone nasal spray 16GM bottle NS SCH (08:00)
[2018-06-21] MEDS: clopidogrel 75mg tablet PO SCH (08:34)
[2018-06-21] MEDS: amLODIPine 5mg tablet PO SCH (08:34)
[2018-06-21 11:00] VITALS: BP 100/60
[2018-06-21 15:00] VITALS: BP 159/87
[2018-06-21 19:00] VITALS: BP 129/78
[2018-06-21] MEDS: aspirin 81mg tab.chew PO SCH (21:43)
[2018-06-21] MEDS: pantoprazole 40mg Tablet.DR PO SCH (21:43)
[2018-06-21] MEDS: pravastatin 40mg tablet PO SCH (21:43)
[2018-06-21] MEDS: tamsulosin 0.4mg capsule PO SCH (21:43)
[2018-06-21 23:00] VITALS: BP 108/74
[2018-06-22 03:00] VITALS: BP 140/85
[2018-06-22 06:00] VITALS: BP 124/82
[2018-06-22 06:00] LABS: BASOPHILS % (AUTO) 0.5 % (0-1); EOSINOPHILS # (AUTO) 0.1 X10'3 (0-0.9); EOSINOPHILS % (AUTO) 2.1 % (0-6); HEMATOCRIT 39.7 % (42.0-52.0); HEMOGLOBIN 13.7 g/dl (14.0-17.9); LYMPHOCYTES # (AUTO) 1.5 X10'3 (1.1-4.8); LYMPHOCYTES % (AUTO) 22.7 % (21-51); MEAN CORPUSCULAR HEMOGLOBIN 32.3 PG (27.0-31.0); MEAN CORPUSCULAR HGB CONC 34.4 % (33.0-36.5); MEAN CORPUSCULAR VOLUME 94.1 FL (78-98); MEAN PLATELET VOLUME 6.7 FL (7.4-10.4); MONOCYTES # (AUTO) 0.6 X10'3 (0-0.9); MONOCYTES % (AUTO) 8.8 % (2-12); NEUTROPHILS # (AUTO) 4.4 X10'3 (1.8-7.7); NEUTROPHILS % (AUTO) 65.9 % (42-75); PLATELET COUNT 289 X10'3 (140-440); RED BLOOD COUNT 4.22 X10'6 (4.70-6.10); RED CELL DISTRIBUTION WIDTH 13.4 % (11.5-14.5); WHITE BLOOD COUNT 6.7 X10'3 (4.5-11.0)
[2018-06-22 06:32] LABS: ALBUMIN 2.8 G/DL (3.4-5.0); ANION GAP 8 (8-16); BLOOD UREA NITROGEN 20 MG/DL (7-18); CALCIUM 8.6 MG/DL (8.5-10.1); CHLORIDE 104 MMOL/L (99-107); CREATININE 1.11 MG/DL (0.60-1.10); GLUCOSE 110 MG/DL (70-104); MAGNESIUM 1.9 MG/DL (1.5-2.4); POTASSIUM 3.6 MMOL/L (3.5-5.1); SODIUM 140 MMOL/L (135-145); TOTAL CARBON DIOXIDE 27.6 MMOL/L (24-32); eGFR 65 ML/MIN
[2018-06-22] MEDS: K and/or MAG REPLACEMENT MC SCH (08:00)
[2018-06-22] MEDS: fluticasone nasal spray 16GM bottle NS SCH (08:02)
[2018-06-22] MEDS: gemfibrozil 600mg tablet PO SCH (08:03)
[2018-06-22] MEDS: clopidogrel 75mg tablet PO SCH (08:03)
[2018-06-22] MEDS: amLODIPine 5mg tablet PO SCH (08:03)
[2018-06-22 11:00] VITALS: BP 93/69
[2018-06-22 15:00] VITALS: BP 127/72
== END 2018-06-22 17:13 | disposition home health service (06) | DRG 65 ==
LOC: ER 12:57 → ED HOLD 14:23 → EDBEDREQ 14:44 → PCU 3S 15:15
PROVIDERS: ADMIT Internal Medicine; ATTEND Internal Medicine
PROC: 5A09357 Assistance with Respiratory Ventilation, Less than 24 Consecutive Hours, Continuous Positive Airway Pressure (ICD-10-PCS; principal; 2018-06-20)
PROC: 5A09357 Assistance with Respiratory Ventilation, Less than 24 Consecutive Hours, Continuous Positive Airway Pressure (ICD-10-PCS; 2018-06-21)
DX: I63.9 Cerebral infarction, unspecified (principal); N17.9 Acute kidney failure, unspecified; I25.10 Atherosclerotic heart disease of native coronary artery without angina pectoris; E78.5 Hyperlipidemia, unspecified; N40.0 Benign prostatic hyperplasia without lower urinary tract symptoms; R29.810 Facial weakness; G83.24 Monoplegia of upper limb affecting left nondominant side; I12.9 Hypertensive chronic kidney disease with stage 1 through stage 4 chronic kidney disease, or unspecified chronic kidney disease; E11.22 Type 2 diabetes mellitus with diabetic chronic kidney disease; N18.9 Chronic kidney disease, unspecified; Z95.1 Presence of aortocoronary bypass graft; Z88.0 Allergy status to penicillin; Z79.899 Other long term (current) drug therapy; Z79.82 Long term (current) use of aspirin; Z79.02 Long term (current) use of antithrombotics/antiplatelets
CPT/HCPCS: 36415; 70450; 70544; 70551; 71045; 80048; 80053; 80061; 80320; 82948; 83735; 83880; 84484; 85025; 85576; 85610; 85730; 92616; 93005; 93880; 97110; 97116; 97161; 99285